=== PATIENT | female | born 1990 | race Caucasian/White ===

== ENCOUNTER 2016-10-29 10:54 | Emergency (ER) | payer MEDICAID, OTHER ==
[~2016-10-29] VITALS: Wt 83.0 kg
[~2016-10-29 10:54] MED LIST: PREN1TAB17 PO
--- NOTE | 2016-10-29 11:14 | ERD ---
ER Documentation Chief Complaint Date/Time DATE: 10/29/16 TIME: 11:08 Chief Complaint ON AND OFF FACIAL PAIN X2 WEEKS, NO INJURY HPI 26-year-old female otherwise healthy comes in with left-sided facial pain for the past 2 weeks. She states that it has been intermittent, goes from the inner cheek of the left side of the face and goes across her left upper eye. Patient states that she has tried ibuprofen, Tylenol and Aleve without much relief. Has been achy, associated with mild swelling. She is denies any congestion, fever or URI symptoms. Denies trauma. ROS All systems reviewed and are negative except as per history of present illness. Medications Home Meds Active Scripts Tramadol HCl (Tramadol HCl) 50 Mg Tablet, 50 MG PO Q4 Y for PAIN, #15 TAB Prov:LATASHA NIELSEN PA-C 10/29/16 Amoxicillin/Potassium Clav (Amox-Clav 875-125 mg Tablet) 875-125 mg Tab, 1 TAB PO BID for 7 Days, #14 TAB Prov:LATASHA NIELSEN PA-C 10/29/16 Reported Medications Vit-Iron Fumarate-FA ( Tablet) 1 Each Tablet, 1 TAB PO DAILY, TAB 01/29/14 Allergies Allergies: Coded Allergies: No Known Allergy (Verified , 01/29/14) PMhx/Soc Medical and Surgical Hx: pt denies Medical Hx Hx Alcohol Use: No Hx Substance Use: No Hx Tobacco Use: No Physical Exam Vitals Vital Signs Date Time Temp Pulse Resp B/P Pulse Ox O2 Delivery O2 Flow Rate FiO2 10/29/16 10:58 98.7 89 16 147/66 98 Physical Exam General: Well-developed, well-nourished. The patient appears in no acute distress. HEENT: Head is normocephalic, atraumatic. No scleral icterus. Pupils are equal , round, and reactive. Oral mucous membranes are moist. No pharyngeal erythema. Poor dentition, multiple caries. There is left-sided gingival pain upon palpation in the left upper gum, no abscess appreciated. There is tenderness across the zygomatic arch on the left side of the face. There is no TMJ tenderness, no crepitus or trismus. There is no periorbital swelling or ecchymosis. Extraocular movements intact Neck: Supple. Nontender. Lungs: Clear to auscultation. Normal air movement. Heart: Regular rate and rhythm. S1 and S2 are normal. No murmurs, gallops, or rubs. Abdomen: Soft, nontender, nondistended. Bowel sounds are normoactive. Extremities: No clubbing or cyanosis. Normal pulses. Moving extremities x 4. No weakness. Neurologic: Alert and oriented 3. No focal deficits. Skin: Normal turgor. No rash or lesions. Results 24 hrs DIAGNOSTIC IMAGING REPORT Patient: MIGUE NEVES : 1990 Age: 26 Sex: F MR #: [id number] DOS: 10/29/16 1108 Ordering MD: LATASHA NIELSEN PA-C Location: [facility] Room/Bed: PROCEDURE: CT scan facial bones CLINICAL INDICATION: Left facial pain. No trauma. TECHNIQUE: CT scan of the face was performed on the a high-resolution multidetector CT scanner with multiple contiguous axial images obtained through the face. Coronal and sagittal reformatted images were obtained from the axial source images. One or more the following does reduction techniques were utilized : Automated exposure control, adjustment of the mA/ or kV according to patient' s size, or use of iterative reconstruction technique. Exam CTDI = 29.42 mGy and the DLP = 535.88 mGy-cm. COMPARISON: None available. FINDINGS: Suboptimal study due to absence of intravenous contrast. No acute fracture or dislocation is seen. Left accessory parotid gland is noted adjacent to the left masseter muscle. No significant soft tissue swelling is noted. The orbital globes are unremarkable. Nasal septum is intact. Paranasal sinuses demonstrate mild scattered mucosal thickening mainly in bilateral maxillary sinuses. IMPRESSION: 1. No acute facial fracture or dislocation. 2. Left accessory parotid gland. 3. No significant facial soft tissue swelling or mass. A call report was made and above findings were discussed and acknowledged by Latasha Poon on 10/29/2016 1:08 PM . RPTAT: JJ .Emelia Rosales MD, MD Date Time Electronically viewed and signed by .Emelia Rosales MD, MD on 10/29/2016 13: 15 .N/ CC: LATASHA NIELSEN PA-C Current Medications Medications (Trade) Dose Ordered Sig/Kevin Route PRN Reason Start Time Stop Time Status Last Admin Dose Admin Tramadol HCl (Ultram) 50 mg ONCE ONCE PO 10/29/16 11:30 10/29/16 11:31 DC 10/29/16 11:17 Procedures/MDM ED COURSE: Patient was medicated with tramadol. Medical decision making: This is a 26-year-old female with left-sided facial pain for 2 weeks, CT of the face shows an accessory parotid gland on the left side, there is no evidence of a mass. There is scattered sinus thickening is well. There is no evidence of fracture, osteomyelitis, deep space infection, meningitis. Patient's examination shows tenderness over the left side of the cheek, no distinct abscess or mass appreciated. She does not have any trismus, or systemic symptoms. She was given a copy of the CT scan, will be treated for sinus infection, and was asked to follow-up with her primary care doctor. Departure Diagnosis: Primary Impression: Accessory parotid gland Additional Impression: Sinus mucosal thickening Condition: Good LATASHA NIELSEN PA-C Oct 29, 2016 11:13
[2016-10-29] MEDS ORDERED: traMADol 50 MG TAB PO ONE (11:30)
--- NOTE | 2016-10-29 13:15 | RADRPT ---
PROCEDURE: CT scan facial bones CLINICAL INDICATION: Left facial pain. No trauma. TECHNIQUE: CT scan of the face was performed on the a high-resolution multidetector CT scanner wit h multiple contiguous axial images obtained through the face. Coronal and sagittal reformatted imag es were obtained from the axial source images. One or more the following does reduction techniques w ere utilized: Automated exposure control, adjustment of the mA/ or kV according to patient's size, o r use of iterative reconstruction technique. Exam CTDI = 29.42 mGy and the DLP = 535.88 mGy-cm. COMPARISON: None available. FINDINGS: Suboptimal study due to absence of intravenous contrast. No acute fracture or dislocation is seen. Left accessory parotid gland is noted adjacent to the lef t masseter muscle. No significant soft tissue swelling is noted. The orbital globes are unremarkabl e. Nasal septum is intact. Paranasal sinuses demonstrate mild scattered mucosal thickening mainly i n bilateral maxillary sinuses. IMPRESSION: 1. No acute facial fracture or dislocation. 2. Left accessory parotid gland. 3. No significant facial soft tissue swelling or mass. A call report was made and above findings were discussed and acknowledged by Ruby Poon on 10/30/19 17 1:08 PM . RPTAT: JJ .Emelia Rosales MD, Date Time Electronically viewed and signed by .Emelia Rosales MD, MD on 10/29/2016 13:15 .N/
[2016-10-29] MEDS ORDERED: TRAM50TA2 PO (13:25)
[2016-10-29] MEDS ORDERED: AMOX1TAB10 PO (13:25)
== END 2016-10-29 14:13 | disposition home or self-care (01) ==
LOC: FTE 10:54
DX: Q38.4 Congenital malformations of salivary glands and ducts (principal); J34.89 Other specified disorders of nose and nasal sinuses
CPT/HCPCS: 70486; Z7610

== ENCOUNTER 2017-10-27 11:38 | Emergency (ER) | END 2017-10-27 14:50 | disposition home or self-care (01) ==

== ENCOUNTER 2018-10-29 15:06 | Emergency (ER) | payer OTHER ==
[~2018-10-29] VITALS: Ht 157.5 cm; Wt 77.7 kg
[~2018-10-29 15:06] MED LIST changes: +AMOX1TAB10 PO; +NAPR-985 PO; +TRAM50TA2 PO
[2018-10-29 15:16] VITALS: Ht 157.5 cm; Wt 77.7 kg
[2018-10-29] MEDS ORDERED: ONDANSETRON (ODT) 4 MG TAB ODT STA (16:44)
--- NOTE | 2018-10-29 16:49 | ERD ---
ER Documentation Chief Complaint Chief Complaint vomitting, headache, cough, fever x 7 days HPI Patient is a 28-year-old female, past medical history of lupus, presents the ER for concerns of tactile fevers, headache, vomiting, congestion, dry cough x1 week. Patient states she vomited once today. Patient has been taking over-the- counter medication with minimal alleviation of symptoms. Patient states she developed chest pain 2 days ago. Patient describes the pain to be localized to her mid sternum. Patient denies any radiation of the pain. Patient denies any pleuritic pain. Patient denies any left upper extremity pain, diaphoresis, fevers, chills, or LOC. Patient denies any dysuria, frequency, abdominal pain. Patient is currently on her menstrual period. ROS All systems reviewed and are negative except as per history of present illness. Medications Home Meds Active Scripts Ibuprofen* (Motrin*) 600 Mg Tab, 600 MG PO Q6, #30 TAB Prov:JUDIT TERRELL PA-C 10/29/18 Dextromethorphan Hb-Promethazine Hcl* (Promethazine DM* Syrup) 473 Ml Syrup, 5 ML PO Q6 PRN for COUGH, #4 OZ Prov:JUDIT TERRELL PA-C 10/29/18 Benzonatate* (Tessalon Perle*) 100 Mg Capsule, 100 MG PO Q8H PRN for COUGH, #30 CAP Prov:JUDIT TERRELL PA-C 10/29/18 Azithromycin* (Zithromax*) 250 Mg Tablet, 250 MG PO .ZPACK DIRECTED, #6 TAB TAKE 500 MG (2 TABS) THE FIRST DAY THEN 250 MG (1 TAB) DAYS 2-5 Prov:JUDIT TERRELL PA-C 10/29/18 Naproxen* (Naprosyn*) 500 Mg Tablet, 500 MG PO BID PRN for PAIN AND/OR INFLAMMATION, #30 TAB Prov:NUBIA MUNIZ PA-C 10/27/17 Tramadol HCl (Tramadol HCl) 50 Mg Tablet, 50 MG PO Q4 PRN for PAIN, #15 TAB Prov:LATASHA NIELSEN PA-C 10/29/16 Amoxicillin/Potassium Clav (Amox-Clav 875-125 mg Tablet) 875-125 mg Tab, 1 TAB PO BID for 7 Days, #14 TAB Prov:LATASHA NIELSEN PA-C 10/29/16 Reported Medications Vit-Iron Fumarate-FA ( Tablet) 1 Each Tablet, 1 TAB PO DAILY, TAB 01/29/14 Allergies Allergies: Coded Allergies: No Known Allergy (Verified , 10/29/18) PMhx/Soc History of Surgery: No Anesthesia Reaction: No Hx Neurological Disorder: No Hx Respiratory Disorders: No Hx Cardiac Disorders: No Hx Psychiatric Problems: No Hx Miscellaneous Medical Probl: Yes (josette) Hx Alcohol Use: No Hx Substance Use: No Hx Tobacco Use: No Smoking Status: Never smoker FmHx Family History: No diabetes Physical Exam Vitals Vital Signs Date Temp Pulse Resp B/P (MAP) Pulse Ox O2 O2 Flow FiO2 Time Delivery Rate 10/29/18 98.7 74 18 126/89 97 Room Air 18:55 (101) 10/29/18 99.3 95 20 133/76 96 15:16 (95) Physical Exam GENERAL: Well-developed, well-nourished female. Appears in no acute distress. Speaking in full sentences. HEAD: Normocephalic, atraumatic. No deformities or ecchymosis. EYE: Pupils equal, round, and reactive to light. EOMs intact. No conjunctival erythema. No eye discharge. ENT: External ear without any masses or tenderness. Auditory canals clear bilaterally. TM visualized bilaterally, non-erythematous, non-bulging. Nasal mucosa pink with no discharge. Oropharynx is pink without any tonsillar erythema or exudates. No uvula deviation. No kissing tonsils. NECK: Supple. No meningismus. Normal ROM of the neck. CHEST WALL: Tender to palpation over the sternum. Pain is reproducible. LUNG: Coarse breath sounds noted. HEART: Regular rate and rhythm. No murmurs, rubs or gallops. Equal coffee roaster strength bilaterally. ABDOMEN: Soft, nontender, and nondistended. Positive bowel sounds in all four quadrants. No rebound tenderness, no guarding. (-) McBurney's point tenderness. No CVA tenderness. EXTREMITIES: Equal pulses bilaterally. No peripheral clubbing, cyanosis or edema. No unilateral leg swelling. NEUROLOGIC: Alert and oriented to person, place and time. Moving all four extremities. 5/5 strength in all extremities. Normal speech. Steady gait. SKIN: Normal color. Warm and dry. No rashes or lesions. Result Diagram: 10/29/18 1707 10/29/18 1707 Results 24 hrs Laboratory Tests Test 10/29/18 16:55 10/29/18 16:56 10/29/18 17:07 Bedside Urine pH (LAB) 5.5 Bedside Urine Protein (LAB) Trace Bedside Urine Glucose (UA) Negative Bedside Urine Ketones (LAB) Negative Bedside Urine Blood 1+ Bedside Urine Nitrite (LAB) Negative Bedside Urine Leukocyte Esterase Negative (L POC Beta HCG, Qualitative NEGATIVE White Blood Count 15.2 10^3/ul Red Blood Count 4.69 10^6/ul Hemoglobin 14.5 g/dl Hematocrit 44.5 % Mean Corpuscular Volume 94.9 fl Mean Corpuscular Hemoglobin 30.9 pg Mean Corpuscular 32.6 g/dl Hemoglobin Concent Red Cell Distribution Width 12.7 % Platelet Count 237 10^3/UL Mean Platelet Volume 10.2 fl Immature Granulocytes % 0.400 % Neutrophils % 71.0 % Lymphocytes % 18.8 % Monocytes % 9.0 % Eosinophils % 0.4 % Basophils % 0.4 % Nucleated Red Blood Cells % 0.0 /100WBC Immature Granulocytes # 0.060 10^3/ul Neutrophils # 10.8 10^3/ul Lymphocytes # 2.9 10^3/ul Monocytes # 1.4 10^3/ul Eosinophils # 0.1 10^3/ul Basophils # 0.1 10^3/ul Nucleated Red Blood Cells # 0.0 10^3/ul Sodium Level 142 mmol/L Potassium Level 3.7 mmol/L Chloride Level 104 mmol/L Carbon Dioxide Level 27 mmol/L Anion Gap 11 Blood Urea Nitrogen 7 mg/dl Creatinine 0.84 mg/dl Est Glomerular Filtrat Rate mL/min > 60 mL/min Glucose Level 94 mg/dl Calcium Level 9.6 mg/dl Total Bilirubin 0.8 mg/dl Direct Bilirubin 0.00 mg/dl Indirect Bilirubin 0.8 mg/dl Aspartate Amino Transf (AST/SGOT) 19 IU/L Alanine 15 IU/L Aminotransferase (ALT/SGPT) Alkaline Phosphatase 77 IU/L Troponin I < 0.012 ng/ml Total Protein 7.8 g/dl Albumin 4.3 g/dl Globulin 3.50 g/dl Albumin/Globulin Ratio 1.22 Lipase 39 U/L Current Medications Medications Dose Sig/Kevin Start Time Status Last (Trade) Ordered Route PRN Stop Time Admin Dose Reason Admin Ibuprofen 600 mg ONCE ONCE 10/29/18 DC 10/29/18 (Motrin) PO 17:00 16:51 10/29/18 17:01 Ondansetron 4 mg ONCE STAT 10/29/18 DC 10/29/18 HCl (Zofran ODT 16:44 16:51 Odt) 10/29/18 16:45 Procedures/MDM ED COURSE: The patient was stable throughout ED course. I kept the patient and/or family informed of laboratory and diagnostic imaging results throughout the ED course. EKG: Read by Dr. Morton attending physician. EKG shows normal sinus rhythm at a rate of 88 bpm No arrhythmias or acute ST elevations were noted. DIAGNOSTIC IMAGING: Read by radiologist. DIAGNOSTIC IMAGING REPORT Patient: MIGUE NEVES : 1990 Age: 28 Sex: F MR #: [id number] DOS: 10/29/18 1643 Ordering MD: JUDIT TERRELL PA-C Location: [facility] Room/Bed: PROCEDURE: XR Chest. CLINICAL INDICATION: Cough and fever TECHNIQUE: Single portable view of the chest was obtained. COMPARISON: 10/27/2017 FINDINGS: Cardiac/vascular structures: Normal cardiomediastinal silhouette. Pulmonary: Right upper lung linear opacity.. Trace right pleural effusion. No evidence of pneumothorax. Osseous structures: Normal Soft tissues: Normal IMPRESSION: Trace right pleural effusion. Right upper lung linear opacity may represent atelectasis or developing pneumonia. RPTAT:AAJJ Physician Leti Date Time Electronically viewed and signed by Physician Leti on 10/29/2018 17:30 MH/ CC: JUDIT TERRELL PA-C [id number] PROCEDURES: None. MEDICATIONS GIVEN: Ibuprofen, Zofran Patient tolerated medication well with no adverse reactions. MEDICAL DECISION MAKING: This is a 28-year-old female, past medical history of lupus, presents the ER for concerns of tactile fevers, headache, vomiting, congestion, chest wall pain and cough x1 week. Vital signs were reviewed. Patient was afebrile. Patient was not hypoxic. ENT exam was normal. Lung exam did reveal coarse breath sounds. Patient had no signs of acute respiratory distress. Blood work was obtained. CBC showed WBC count of 15.2. No evidence of severe anemia. CMP showed no severe electrolyte abnormalities, acidosis, alkalosis, renal injury or liver failure. Lipase showed no evidence of acute pancreatitis. Troponin was within normal limits. Urine test was negative. UA did show 1+ blood, no evidence of infection. EKG showed normal sinus rhythm. No ST elevations. Chest x-ray was obtained and did show right upper lung linear opacity which likely represents a developing pneumonia. Trace right pleural effusion was noted. Discussed case with supervising physician Dr. Morton who agreed that patient is stable for outpatient management. At this time, patient's presentation is most consistent with community-acquired pneumonia. Patient is stable for outpatient management. Low suspicion for acute respiratory distress, respiratory failure, CHF, TB, me ningitis, sinusitis, otitis externa, acute otitis media, strep pharyngitis, epiglottitis or peritonsillar abscess. PRESCRIPTIONS: Ibuprofen, promethazine cough syrup, Tessalon Perles DISCHARGE: At this time, patient is stable for discharge and outpatient management. Supportive therapies such as OTC throat lozenges, salt water gurgles, popsicles and jello discussed. I have instructed the patient to follow-up with his/her primary care physician in 1-2 days. I have instructed the patient to promptly return to the ER for any new or worsening symptoms including increased pain, swelling, fever, nausea, vomiting, weakness or difficulty breathing. The patient and/or family expressed understanding of and agreement with this plan. All questions were answered. Home care instructions were provided. Disclaimer: Inadvertent spelling and grammatical errors are likely due to EHR/dictation software use and do not reflect on the overall quality of patient care. Also, please note that the electronic time recorded on this note does not necessarily reflect the actual time of the patient encounter. Departure Diagnosis: Primary Impression: Headache Headache type: unspecified Headache chronicity pattern: unspecified pattern Intractability: not intractable Qualified Codes: R51 - Headache Additional Impressions: Nausea and vomiting Vomiting type: unspecified Vomiting Intractability: unspecified Qualified Codes: R11.2 - Nausea with vomiting, unspecified Chest wall pain Pneumonia Pneumonia type: due to unspecified organism Laterality: unspecified laterality Lung location: unspecified part of lung Qualified Codes: J18.9 - Pneumonia, unspecified organism Pleural effusion Condition: Fair Patient Instructions: Self-Care for Headaches, Bronchitis, Antiobiotic Treatment (Adult) Referrals: [facility] YOU HAVE RECEIVED A MEDICAL SCREENING EXAM AND THE RESULTS INDICATE THAT YOU DO NOT HAVE A CONDITION THAT REQUIRES URGENT TREATMENT IN THE EMERGENCY DEPARTMENT. FURTHER EVALUATION AND TREATMENT OF YOUR CONDITION CAN WAIT UNTIL YOU ARE SEEN IN YOUR DOCTORS OFFICE WITHIN THE NEXT 1-2 DAYS. IT IS YOUR RESPONSIBILITY TO MAKE AN APPOINTMENT FOR FOLOW-UP CARE. IF YOU HAVE A PRIMARY DOCTOR --you should call your primary doctor and schedule an appointment IF YOU DO NOT HAVE A PRIMARY DOCTOR YOU CAN CALL OUR PHYSICIAN REFERRAL HOTLINE AT IF YOU CAN NOT AFFORD TO SEE A PHYSICIAN YOU CAN CHOSE FROM THE FOLLOWING [facility] [address] [facility] [address] [facility] [address] [facility] [address] [facility] [address] [facility] [facility] [address] [facility] [facility] YOU HAVE RECEIVED A MEDICAL SCREENING EXAM AND THE RESULTS INDICATE THAT YOU DO NOT HAVE A CONDITION THAT REQUIRES URGENT TREATMENT IN THE EMERGENCY DEPARTMENT. FURTHER EVALUATION AND TREATMENT OF YOUR CONDITION CAN WAIT UNTIL YOU ARE SEEN IN YOUR DOCTORS OFFICE WITHIN THE NEXT 1-2 DAYS. IT IS YOUR RESPONSIBILITY TO MAKE AN APPOINTMENT FOR FOLOW-UP CARE. IF YOU HAVE A PRIMARY DOCTOR --you should call your primary doctor and schedule and appointment IF YOU DO NOT HAVE A PRIMARY DOCTOR YOU CAN CALL OUR PHYSICIAN REFERRAL HOTLINE AT . IF YOU CAN NOT AFFORD TO SEE A PHYSICIAN YOU CAN CHOSE FROM THE FOLLOWING [facility] INSTITUTIONS: [facility] [address] [place] [address] [facility] [address] [place] [address] [facility] [address] [place] [address] Additional Instructions: Call your primary care doctor TOMORROW for an appointment during the next 1-2 days.See the doctor sooner or return here if your condition worsens before your appointment time. JUDIT TERRELL PA-C Oct 29, 2018 16:49
[2018-10-29] MEDS ORDERED: IBUPROFEN 600 MG TAB PO ONE (17:00)
[2018-10-29] MEDS ORDERED: AZIT250T PO (18:42)
[2018-10-29] MEDS ORDERED: D-ME473S2 PO (18:42)
[2018-10-29] MEDS ORDERED: BENZ-6 PO (18:42)
[2018-10-29] MEDS ORDERED: IBUP-1542 PO (18:44)
[2018-10-29 18:55] VITALS: BP 126/89; PULSE 74; RESP 18
[2018-10-30] MEDS ORDERED: ONDA4TAB14 PO (06:59)
== END 2018-10-29 18:57 | disposition home or self-care (01) ==
LOC: FTE 15:06
DX: J18.9 Pneumonia, unspecified organism (principal); J90 Pleural effusion, not elsewhere classified; R51 Headache
CPT/HCPCS: 36415; 71045; 80053; 81003; 81025; 83690; 84484; 85025; 93005; Z7502; Z7610

== ENCOUNTER 2018-10-30 06:42 | Emergency (ER) | payer OTHER ==
[~2018-10-30] VITALS: Ht 154.9 cm; Wt 64.0 kg
[~2018-10-30 06:42] MED LIST changes: +AZIT250T PO; +BENZ-6 PO; +D-ME473S2 PO; +IBUP-1542 PO
[2018-10-30 06:47] VITALS: BP 130/58; PULSE 103; RESP 20; Ht 154.9 cm; Wt 64.0 kg
[2018-10-30] MEDS ORDERED: ACETAMINOPHEN 500 MG TAB PO STA (06:56)
[2018-10-30] MEDS ORDERED: ONDANSETRON (ODT) 4 MG TAB ODT STA (06:56)
[2018-10-30] MEDS ORDERED: ONDA4TAB14 PO (06:59)
--- NOTE | 2018-10-30 06:59 | ERD ---
ER Documentation Chief Complaint Chief Complaint pt bib family seen here yesterday, feels worse, fever, last med 2230 HPI Patient is a 28-year-old female who was seen here yesterday. She is here because she still not feeling better. She was diagnosed with pneumonia. She started taking the Z-Jm yesterday. She has not taken any medication or antipyretics today. She states she feels nausea and continues to have chills. As well as fever. ROS All systems reviewed and are negative except as per history of present illness. Medications Home Meds Active Scripts Ibuprofen* (Motrin*) 600 Mg Tab, 600 MG PO Q6, #30 TAB Prov:JUDIT TERRELL PA-C 10/29/18 Dextromethorphan Hb-Promethazine Hcl* (Promethazine DM* Syrup) 473 Ml Syrup, 5 ML PO Q6 PRN for COUGH, #4 OZ Prov:JUDIT TERRELL PA-C 10/29/18 Benzonatate* (Tessalon Perle*) 100 Mg Capsule, 100 MG PO Q8H PRN for COUGH, #30 CAP Prov:JUDIT TERRELL PA-C 10/29/18 Azithromycin* (Zithromax*) 250 Mg Tablet, 250 MG PO .PiyushPACK DIRECTED, #6 TAB TAKE 500 MG (2 TABS) THE FIRST DAY THEN 250 MG (1 TAB) DAYS 2-5 Prov:JUDIT TERRELL PA-C 10/29/18 Naproxen* (Naprosyn*) 500 Mg Tablet, 500 MG PO BID PRN for PAIN AND/OR INFLAMMATION, #30 TAB Prov:NUBIA MUNIZ PA-C 10/27/17 Tramadol HCl (Tramadol HCl) 50 Mg Tablet, 50 MG PO Q4 PRN for PAIN, #15 TAB Prov:LATASHA NIELSEN PA-C 10/29/16 Amoxicillin/Potassium Clav (Amox-Clav 875-125 mg Tablet) 875-125 mg Tab, 1 TAB PO BID for 7 Days, #14 TAB Prov:LATASHA NIELSEN PA-C 10/29/16 Reported Medications Vit-Iron Fumarate-FA ( Tablet) 1 Each Tablet, 1 TAB PO DAILY, TAB 01/29/14 Allergies Allergies: Coded Allergies: No Known Allergy (Verified , 6/27/19) PMhx/Soc History of Surgery: No Anesthesia Reaction: No Hx Neurological Disorder: No Hx Respiratory Disorders: No Hx Cardiac Disorders: No Hx Psychiatric Problems: No Hx Miscellaneous Medical Probl: Yes (josette) Hx Alcohol Use: No Hx Substance Use: No Hx Tobacco Use: No FmHx Family History: No diabetes Physical Exam Vitals Vital Signs Date Temp Pulse Resp B/P (MAP) Pulse Ox O2 O2 Flow FiO2 Time Delivery Rate 10/30/18 100.7 103 20 130/58 97 06:47 (82) Physical Exam INITIAL VITAL SIGNS: Reviewed by me GENERAL: Awake, alert and oriented x 4, well appearing, nontoxic, speaking in full sentences. No acute distress HEAD: Atraumatic NECK: Supple. No masses. Full range of motion. No meningismus. No midline tenderness. NOSE: Normal nose. THROAT: No tonilar erythema or edema. No exudates. Uvula midline. No kissing tonsils. RESPIRATORY: Clear to auscultation bilaterally. Symmetric chest wall rise. No wheezing or rales. No accessory muscle use. CV: Regular rate and rhythm. No murmurs, rubs, or gallops. Procedures/MDM I reviewed patient's note from her previous visit yesterday where she had blood work done. Also reviewed chest x-ray. Her findings were consistent with pneumonia. She is on an appropriate course of treatment with azithromycin. She should continue this medication as prescribed. Here she was given a dose of Zofran as well as Tylenol and Decadron IM. Patient counseled regarding my diagnostic impression and care plan. Prior to discharge all questions answered. Pt agrees with treatment plan and understands strict return precautions. Pt is instructed to follow up with primary care provider within 24-48 hours. Precautionary instructions provided including instructions to return to the ER if not improving or for any worsening or changing symptoms or concerns. Departure Diagnosis: Primary Impression: Pneumonia Condition: Stable EVELIA THOMPSON PA-C Oct 30, 2018 06:59
[2018-10-30] MEDS ORDERED: DEXAMETHASONE 10 MG/ML 1 ML INJ IM ONE (07:00)
== END 2018-10-30 07:30 | disposition home or self-care (01) ==
LOC: FTE 06:42
DX: J18.9 Pneumonia, unspecified organism (principal)
CPT/HCPCS: 96372; J1100; Z7502; Z7610

== ENCOUNTER 2019-03-05 11:25 | Emergency (ER) | payer OTHER ==
[~2019-03-05] VITALS: Ht 157.5 cm; Wt 78.6 kg
[~2019-03-05 11:25] MED LIST changes: +ONDA4TAB14 PO
[2019-03-05 11:32] VITALS: BP 119/78; PULSE 64; RESP 16; Ht 157.5 cm; Wt 78.6 kg
== END 2019-03-05 14:26 | disposition home or self-care (01) ==
LOC: FTE 11:25
DX: O20.9 Hemorrhage in early pregnancy, unspecified (principal); Z3A.01 Less than 8 weeks gestation of pregnancy
CPT/HCPCS: 36415; 76801; 76817; 81001; 84702; 85025; 86900; 86901; Z7502; 81003